=== PATIENT | female | born 1955 | race Hispanic/Latino ===

== ENCOUNTER 2017-12-05 22:21 | Emergency (ER) | payer OTHER ==
[2017-12-05] MEDS ORDERED: LASIX IV ONE (22:29)
[2017-12-05] MEDS ORDERED: NITROSTAT SL ONE (22:30)
--- NOTE | 2017-12-05 22:44 | Emergency Department Report ---
ED Shortness of Breath HPI - General Chief Complaint: Dyspnea/Respdistress Stated Complaint: rosa maria Time Seen by Provider: 12/05/17 22:39 Source: EMS Mode of arrival: Stretcher Limitations: No Limitations - History of Present Illness Initial Comments: Patient is 62 years old female history of congestive heart failure brought by EMS for severe respiratory distress and shortness of breath for the last 2 days get worse tonight. EMS report that initial oxygen saturation was 73% on room air with initial blood pressure of 200/110. Patient denied chest pain, fever. MD Complaint: shortness of breath, cough -: days(s) Severity: severe Improves With: upright position Known History Of: congestive heart failure - Related Data Previous Rx's Medication Instructions Recorded Last Taken Type Ticagrelor [Brilinta] 90 mg PO BID #60 tablet 01/10/17 03/20/17 Rx AtorvaSTATin [Lipitor] 40 mg PO QHS #30 tablet 03/24/17 Unknown Rx Furosemide [Lasix TAB] 40 mg PO QDAY #30 tablet 03/24/17 Unknown Rx Pantoprazole [Protonix TAB] 40 mg PO DAILY #30 tablet 03/24/17 Unknown Rx Sotalol HCl [Sotalol] 0.5 mg PO BID #60 tablet 03/24/17 Unknown Rx Ticagrelor [Brilinta] 90 mg PO BID #60 tablet 03/24/17 Unknown Rx Allergies Allergy/AdvReac Type Severity Reaction Status Date / Time No Known Allergies Allergy Unverified 01/05/17 12:13 ED Review of Systems ROS: Stated complaint: rosa maria Other details as noted in HPI Comment: All other systems reviewed and negative Constitutional: denies: chills, fever Respiratory: cough, orthopnea, shortness of breath, SOB with exertion, SOB at rest. denies: wheezing Cardiovascular: palpitations, dyspnea on exertion, orthopnea, edema, paroxysmal nocturnal dyspnea. denies: chest pain Gastrointestinal: denies: abdominal pain, nausea, vomiting, diarrhea, constipation, hematemesis Musculoskeletal: denies: back pain, joint swelling Neurological: denies: headache, weakness, numbness, paresthesias ED Past Medical Hx - Past Medical History Previous Medical History?: Yes Hx Hypertension: Yes Hx Heart Attack/AMI: Yes Hx Congestive Heart Failure: Yes Hx Diabetes: No Hx Asthma: No Hx COPD: No Hx HIV: No - Surgical History Past Surgical History?: Yes Hx Coronary Stent: Yes Hx Appendectomy: Yes Additional Surgical History: x 2. spleenectomy. hysterectomy - Social History Smoking Status: Never Smoker - Medications Home Medications: Home Medications Medication Instructions Recorded Confirmed Last Taken Type Ticagrelor [Brilinta] 90 mg PO BID #60 tablet 01/10/17 03/21/17 03/20/17 Rx AtorvaSTATin [Lipitor] 40 mg PO QHS #30 tablet 03/24/17 Unknown Rx Furosemide [Lasix TAB] 40 mg PO QDAY #30 tablet 03/24/17 Unknown Rx Pantoprazole [Protonix TAB] 40 mg PO DAILY #30 tablet 03/24/17 Unknown Rx Sotalol HCl [Sotalol] 0.5 mg PO BID #60 tablet 03/24/17 Unknown Rx Ticagrelor [Brilinta] 90 mg PO BID #60 tablet 03/24/17 Unknown Rx ED Physical Exam - General Limitations: No Limitations General appearance: in distress (severe respiratory distress) - Head Head exam: Present: atraumatic, normocephalic, normal inspection - Eye Eye exam: Present: PERRL - ENT ENT exam: Present: normal exam - Respiratory Respiratory exam: Present: respiratory distress, rales, accessory muscle use, decreased breath sounds, prolonged expiratory. Absent: rhonchi, stridor - Cardiovascular Cardiovascular Exam: Present: tachycardia, gallop - GI/Abdominal GI/Abdominal exam: Present: soft, normal bowel sounds. Absent: tenderness, guarding, rebound, rigid, mass, bruit, pulsatile mass, hernia - Extremities Exam Extremities exam: Present: normal inspection, full ROM, normal capillary refill , pedal edema - Neurological Exam Neurological exam: Present: alert, oriented X3, CN II-XII intact - Skin Skin exam: Present: warm, intact, normal color ED Course Vital Signs 12/05/17 12/05/17 12/05/17 22:24 22:30 23:00 Pulse Rate 132 H 131 H 117 H Respiratory 36 H 37 H 36 H Rate Blood Pressure 181/126 167/123 159/87 O2 Sat by Pulse 95 97 96 Oximetry 12/05/17 12/06/17 12/06/17 23:30 00:00 00:07 Pulse Rate 107 H 103 H 101 H Respiratory 31 H 29 H 27 H Rate Blood Pressure 141/81 109/64 116/72 O2 Sat by Pulse 97 95 97 Oximetry 12/06/17 00:30 Pulse Rate 96 H Respiratory 24 Rate Blood Pressure 115/67 O2 Sat by Pulse 99 Oximetry - Reevaluation(s) Reevaluation #1: 12/06/17 01:23 Patient stated that she is feeling much better. ED Medical Decision Making - Lab Data Result diagrams: 12/05/17 23:50 12/05/17 23:50 - EKG Data -: EKG Interpreted by Id EKG shows normal: sinus rhythm Rate: tachycardia - EKG Data Interpretation: no acute changes - Radiology Data Radiology results: report reviewed Referring Physician: BRITNEY OTERO Patient Name: LISA KWOK Date of : 1955 Sex: Female Report Date: 2017-12-05 Report Status: Finalized Findings [facility] [address] [place] [address] XRay Report Signed Patient: LISA KWOK MR#: [id number] : 1955 Acct:[id number] Age/Sex: 62 / F ADM Date: 12/05/17 Loc: ED Attending Dr: Ordering Physician: BRITNEY OTEOR Date of Service: 12/05/17 Procedure(s): XR chest 1V ap Accession Number(s): [id number] cc: BRITNEY OTERO Fluoro Time In Minutes: FINAL REPORT EXAM: XR CHEST 1V AP HISTORY: Dyspnea TECHNIQUE: A portable upright view of the chest was submitted. There are no previous studies available for comparison. FINDINGS: The heart is [id number] enlarged. The lungs are diffusely congested with interstitial edema. There is patchy airspace disease in both lung bases. Pleural fluid is not seen. There EKG leads overlying the chest wall. The bones and soft tissues do not show any acute changes. IMPRESSION: Cardiomegaly with pulmonary edema pattern. Patchy airspace disease in both lung bases. Whether this is on the basis of edema versus pneumonia is uncertain. Transcribed By: RB Dictated By: JOLIE BOOGIE MD Electronically Authenticated By: JOLIE BOOGIE MD Signed Date/Time: 12/05/172040 DD/ 40 TD/TT: 12/05/172040 - Medical Decision Making Discussed with Dr. Bisi Verduzco, I presented the patient, she agreed to admit the patient to her service. Critical Care Time: Yes Critical care time in (mins) excluding proc time.: 35 Critical care attestation.: If time is entered above; I have spent that time in minutes in the direct care of this critically ill patient, excluding procedure time. ED Disposition Clinical Impression: Acute respiratory failure with hypoxemia, CHF exacerbation Disposition: OP ADMIT IP TO THIS HOSP Is pt being admited?: Yes Condition: Stable Referrals: ALBERTO UMANA MD [Primary Care Provider] - 3-5 Days
[2017-12-06 00:18] LABS: Hematocrit 38.5 % (30.3-42.9); Hemoglobin 12.6 gm/dl (10.1-14.3); Mean Corpuscular HGB Conc 33 % (30-34); Mean Corpuscular Hemoglobin 28 pg (28-32); Mean Corpuscular Volume 85 fl (79-97); Platelet Count 286 K/mm3 (140-440); Red Blood Count 4.52 M/mm3 (3.65-5.03); Red Cell Distribution Width 15.3 % (13.2-15.2)
[2017-12-06 00:31] LABS: Albumin 3.6 g/dL (3.9-5)
[2017-12-06 00:32] LABS: Bilirubin,Urine NEG (Negative); Blood,Urine SM (Negative); Color,Urine Straw (Yellow); Nitrite,Urine NEG (Negative); Urobilinogen,Urine < 2.0 mg/dL (<2.0)
--- NOTE | 2017-12-06 00:45 | XRay Report ---
FINAL REPORT EXAM: XR CHEST 1V AP HISTORY: Dyspnea TECHNIQUE: A portable upright view of the chest was submitted. There are no previous studies available for comparison. FINDINGS: The heart is [id number] enlarged. The lungs are diffusely congested with interstitial edema. There is patchy airspace disease in both lung bases. Pleural fluid is not seen. There EKG leads overlying the chest wall. The bones and soft tissues do not show any acute changes. IMPRESSION: Cardiomegaly with pulmonary edema pattern. Patchy airspace disease in both lung bases. Whether this is on the basis of edema versus pneumonia is uncertain.
[2017-12-06 01:28] LABS: Chol/HDL Ratio 5.39 %
[2017-12-06] MEDS ORDERED: NITROSTAT SL ONE (03:15)
[2017-12-06] MEDS ORDERED: LASIX ONE ×2 (03:15)
[2017-12-06 03:40] LABS: Band Neutrophils # (Manual) 0.5 K/mm3; Eosinophils % (Manual) 0 % (0.0-4.3); Total Cells Counted 100
[2017-12-06 03:41] LABS: Basophils % (Manual) 0 % (0.0-1.8); Platelet Estimate Consistent w Auto
[2017-12-06 05:45] VITALS: BP 114/72
== END 2017-12-06 05:40 | disposition left against medical advice (07) ==
LOC: ED 22:21
DX: I11.0 Hypertensive heart disease with heart failure (principal); I50.9 Heart failure, unspecified; J96.01 Acute respiratory failure with hypoxia; I25.2 Old myocardial infarction; Z90.49 Acquired absence of other specified parts of digestive tract; Z90.81 Acquired absence of spleen; Z90.710 Acquired absence of both cervix and uterus; Z95.818 Presence of other cardiac implants and grafts
CPT/HCPCS: 36415; 71045; 80053; 80061; 81001; 83880; 84484; 85007; 85025; 87040; 93005; 93010; 96374; 99291; J1940